=== PATIENT | female | born 1990 | race Two or more races ===

== ENCOUNTER 2022-02-01 11:02 | Inpatient (IN) | payer OTHER ==
[~2022-02-01] VITALS: Ht 160 cm; Wt 3.2 kg
[2022-02-05] MEDS ORDERED: KETO10TA2 PO (07:24)
[2022-02-05] MEDS ORDERED: OXYC1TAB9 PO (07:24)
== END 2022-02-05 13:17 | disposition home or self-care (01) | DRG 788 ==
LOC: OB/GYN 11:02 → LDR 18:35 → OB/GYN 02-02 19:19
PROVIDERS: Obstetrics & Gynecology Maternal & Fetal Medicine; ADMIT Obstetrics & Gynecology; ATTEND Obstetrics & Gynecology
PROC: 4A1HXCZ Monitoring of Products of Conception, Cardiac Rate, External Approach (ICD-10-PCS; 2022-02-01)
PROC: 0UB10ZZ Excision of Left Ovary, Open Approach (ICD-10-PCS; 2022-02-02)
PROC: 10D00Z1 Extraction of Products of Conception, Low, Open Approach (ICD-10-PCS; principal; 2022-02-02 17:00)
DX: O33.8 Maternal care for disproportion of other origin (principal); O34.83 Maternal care for other abnormalities of pelvic organs, third trimester; O13.4 Gestational [pregnancy-induced] hypertension without significant proteinuria, complicating childbirth; N83.292 Other ovarian cyst, left side; Z3A.40 40 weeks gestation of pregnancy; Z37.0 Single live birth; Z20.822 Contact with and (suspected) exposure to COVID-19; O34.211 Maternal care for low transverse scar from previous cesarean delivery